=== PATIENT | female | born 1995 | race Two or more races ===

== ENCOUNTER 2019-09-28 22:50 | Emergency (ER) | payer OTHER ==
[~2019-09-28] VITALS: Ht 152.4 cm; Wt 68.0 kg
[2019-09-29] MEDS ORDERED: ONDANSETRON HCL 4MG/2ML INJ IV STA (00:18)
[2019-09-29] MEDS ORDERED: MORPHINE SULFATE 4 MG/ML CPJ (NOT FOR IM USE) IV STA (00:18)
[2019-09-29] MEDS ORDERED: TETANUS, DIPHTHERIA, PERTUSSIS VAC/PF 0.5ML (>7YR OLD) IM ONE (00:30)
[2019-09-29] MEDS ORDERED: BACITRACIN ZINC OINT UDPKT TOP ONE (01:00)
[2019-09-29] MEDS ORDERED: LIDOCAINE 1%/EPI 1:100,000 10 ML VIAL IJ ONE (01:00)
[2019-09-29] MEDS ORDERED: LIDOCAINE HCL 1% 20ML VIAL (Pyxis) INJ INFIL ONE (02:15)
[2019-09-29] MEDS ORDERED: MORPHINE SULFATE 4 MG/ML CPJ (NOT FOR IM USE) IV ONE (06:00)
[2019-09-29 09:30] VITALS: BP 101/56
== END 2019-09-29 09:58 | disposition home or self-care (01) ==
LOC: ER 22:50
DX: S63.282A Dislocation of proximal interphalangeal joint of right middle finger, initial encounter (principal); S01.81XA Laceration without foreign body of other part of head, initial encounter; V29.88XA Motorcycle rider (driver) (passenger) injured in other specified transport accidents, initial encounter; Y93.89 Activity, other specified; Y92.89 Other specified places as the place of occurrence of the external cause; Y99.8 Other external cause status
CPT/HCPCS: 12013; 26770; 70450; 71045; 73130; 73140; 81025; 90471; 90715; 96374; 96375; 99284; J2270; J2405; J3490; Z7610